=== PATIENT | female | born 1970 | race Caucasian/White ===

== ENCOUNTER 2018-12-16 18:53 | Emergency (ER) | payer MEDICARE, OTHER ==
[~2018-12-16] VITALS: Ht 175.3 cm; Wt 68.2 kg
[2018-12-16 19:01] VITALS: Ht 175.3 cm; Wt 68.2 kg
[2018-12-16] MEDS ORDERED: HYDROCODON-ACE1 EAC7 PO (20:41)
[2018-12-16 21:59] VITALS: BP 125/83
[2018-12-19] MEDS ORDERED: CYMBALTA60 MG PO (16:00)
[2018-12-19] MEDS ORDERED: XANAX1 MG PO (16:01)
[2018-12-20 13:58] VITALS: Ht 175.3 cm; Wt 68.2 kg
== END 2018-12-16 21:45 | disposition home or self-care (01) ==
LOC: D.ER 18:53
DX: S52.502A Unspecified fracture of the lower end of left radius, initial encounter for closed fracture (principal); W19.XXXA Unspecified fall, initial encounter; S52.612A Displaced fracture of left ulna styloid process, initial encounter for closed fracture; K21.9 Gastro-esophageal reflux disease without esophagitis; S00.83XA Contusion of other part of head, initial encounter

== ENCOUNTER 2018-12-20 12:27 | Day surgery (SDC) | payer MEDICARE, OTHER ==
[~2018-12-20] VITALS: Ht 172.7 cm; Wt 68.0 kg
[~2018-12-20 12:27] MED LIST: CYMBALTA60 MG PO; HYDROCODON-ACE1 EAC7 PO; XANAX1 MG PO
[2018-12-20 13:03] LABS: HEMATOCRIT 38.3 % (36.0-48.0); MCH 28.1 pg (26.0-34.0); MCHC 33.9 g/dL (31.0-37.0); MCV 82.7 fL (80.0-100.0); MEAN PLATELET VOLUME 10.1 fL (7.4-10.4); RBC 4.63 10x6/uL (4.00-5.40); RDW 13.1 % (11.5-14.5); WBC 6.4 10x3/uL (4.8-10.8)
[2018-12-20 13:58] VITALS: BP 104/66; Ht 172.7 cm; Wt 68.0 kg
[2018-12-20] MEDS ORDERED: HYDROCODON-ACE1 EA10 PO (16:02)
--- NOTE | 2018-12-20 18:30 | NUR ---
PATIENT AMBULATES TO BATHROOM WITH SLING ON LEFT ARM, AMBULATES WITHOUT UNSTEADINESS OR DIZZINESS. VOIDS IN TOILET WITHOUT DIFFICULTY. RIGHT AC PIV DC'D WITH TIP INTACT. PATIENT DRESSING IN PERSONAL CLOTHINNG 1842 DISCHARGE INSTRUCTIONS REVIEWED WITH PATIENT AND SPOUSE. DISCHARGED HOME VIA WHEELCHAIR TO PRIVATE VEHICLE WITH SPOUSE
--- NOTE | 2018-12-21 11:22 | OP ---
PATIENT NAME: AKBAR JEROME MEDICAL RECORD: [id number] [facility] [place] [place] ADMISSION DATE: SURGEON: BLADIMIR DRAPER MD DATE OF OPERATION: 12/20/2018 PREOPERATIVE DIAGNOSIS: Comminuted intra-articular distal radius fracture of the left wrist. POSTOPERATIVE DIAGNOSIS: Comminuted intraarticular distal radius fracture of the left wrist. PROCEDURE: Open reduction and internal fixation of left distal radius fracture. SURGEON: Bladimir Draper MD DIP TUBE ASSEMBLER MACHINE: TOPHER Chopra INTRAOPERATIVE COMPLICATIONS: None. SUMMARY OF PATHOLOGIC FINDINGS: Comminuted distal radius fracture -punch split articular surface was reduced and held in place with [place] VariAx 2 distal radius plate under fluoroscopy. OPERATIVE SUMMARY IN DETAIL: After obtaining the appropriate preoperative orthopedic surgery consent as well as anesthetic consultation, evaluation, and clearance, the patient was brought to the operating room and placed on the operating table in the supine position. After adequate general laryngeal mask was administered, tourniquet was placed about the proximal aspect of the left upper extremity. The left upper extremity was then prepped and draped in a routine sterile fashion. At this point, time-out was done, giving the appropriate patient indicators and all agreed upon by the OR staff. Bong's volar approach was utilized and taken down to the level the FCR, which was used as landmark. The median nerve was dissected in its entirety free and carpal tunnel canal was released in its entirety as it was very tight and full of hematoma. Median nerve and flexors were swept to the side. The fracture was identified. Short supinator was reflected. Fracture was identified and reduced again on fluoroscopy. The VariAx 2 short wide plate was utilized. Serial and sequential drill and fill was done with combination of locking and nonlocking screws for the best overall fixation. Volar tilt was brought back to neutral. Radial angle Inclination was reestablished as was radial length. Final radiographs were taken in AP and lateral planes. Wound was copiously irrigated and closed with 2-0 Vicryl and 4-0 Prolene in running fashion by Darron Amezcua. Sterile dressings were applied. Tourniquet was deflated. Volar splint was applied. The patient was awakened and taken to recovery room in stable condition. All final needle and sponge counts were correct. TRANSINT:[id number] Voice Confirmation ID: [id number] DOCUMENT ID: [id number] OPERATIVE REPORT [id number] AKBAR JEROME MD, BLADIMIR OLSEN at 1122 CC: [id number] DICTATION DATE: 12/20/18 1605 [place] OPERATOR: 12/20/18 1729 [facility] 12/20/18 [place] [id number] [place] [id number]
== END 2018-12-20 18:43 | disposition home or self-care (01) ==
LOC: D.OPS 12:27
PROVIDERS: Anesthesiology; ATTEND Orthopaedic Surgery
DX: S52.572A Other intraarticular fracture of lower end of left radius, initial encounter for closed fracture (principal); Z01.812 Encounter for preprocedural laboratory examination

== ENCOUNTER 2020-11-03 18:35 | Emergency (ER) | payer MEDICARE ==
[~2020-11-03] VITALS: Ht 172.7 cm; Wt 63.6 kg
[~2020-11-03 18:35] MED LIST changes: +HYDROCODON-ACE1 EA10 PO; +MEDICAL MARIJUANA
[2020-11-03 18:45] VITALS: Ht 172.7 cm; Wt 63.6 kg
== END 2020-11-03 20:55 | disposition home or self-care (01) ==
LOC: D.ER 18:35
DX: A59.9 Trichomoniasis, unspecified (principal); K21.9 Gastro-esophageal reflux disease without esophagitis